=== PATIENT | female | born 1955 | race African-American/Black ===

== ENCOUNTER 2021-03-10 09:06 | Outpatient (CLI) | payer MEDICARE | END 2021-03-10 09:07 | disposition home or self-care (01) | LOC: BICULT 09:06 | PROVIDERS: ATTEND Internal Medicine Gastroenterology | DX: Z12.11 Encounter for screening for malignant neoplasm of colon (principal); R10.13 Epigastric pain; K21.9 Gastro-esophageal reflux disease without esophagitis; R63.4 Abnormal weight loss; K76.9 Liver disease, unspecified | CPT/HCPCS: 76705 ==

== ENCOUNTER 2022-03-11 21:10 | Emergency (ER) | payer MEDICARE ==
[2022-03-11] MEDS ORDERED: traMADol HCl 50 MG TAB ONE (23:49)
== END 2022-03-12 00:22 | disposition home or self-care (01) ==
LOC: ERS 21:10
DX: M71.22 Synovial cyst of popliteal space [Baker], left knee (principal); I10 Essential (primary) hypertension; K21.9 Gastro-esophageal reflux disease without esophagitis; F17.210 Nicotine dependence, cigarettes, uncomplicated; Z87.19 Personal history of other diseases of the digestive system; Z79.899 Other long term (current) drug therapy